=== PATIENT | male | born 1950 | race Caucasian/White ===

== ENCOUNTER 2019-02-19 13:07 | Emergency (ER) | payer OTHER ==
--- NOTE | 2019-02-19 15:14 | EDPHY ---
H & P Time Seen by Provider: 02/19/19 15:06 HPI/ROS: CHIEF COMPLAINT: Swelling in the right armpit HISTORY OF PRESENT ILLNESS: Patient is had a draining 2 cm red swollen abscess in his right armpit for the past 4 days but he noticed an additional redness and swelling in the right armpit for the last 2 days. He went to urgent care and was sent here. Is not associated with fever weakness or numbness in the hand. No recent injury or trauma. Symptoms moderate. REVIEW OF SYSTEMS: Eye: no change in vision ENT: no sore throat Cardiac: No chest pain Pulmonary: Not short of breath Abdomen: No gastrointestinal symptoms Musculoskeletal: HPI right armpit swelling Skin: HPI Neuro: no headache Constitutional: no fever : no urinary symptoms A comprehensive 10 point review of systems is otherwise negative aside from elements mentioned in the history of present illness. PAST MEDICAL HISTORY: Diabetes but no cardiac or lung disease. Social history: Last oral intake 9:00 a.m. General Appearance: Alert and conversant, cooperative. Eyes: No scleral icterus. ENT, Mouth: Normal mucous membranes. Respiratory: Normal respiratory effort, breath sounds equal, lungs are clear to auscultation. Cardiovascular: Regular rate and rhythm. Gastrointestinal: Abdomen is soft and non tender. Neurological: Alert, face symmetric, normal motor and sensory in extremities. Skin: Patient has a 2 cm red draining abscess in his right axilla and a 2nd one inferior and anterior the size of a fist extending into the pectoralis muscle on the lateral chest wall. It is tender and fluctuant. Surrounding erythema is present. Musculoskeletal: No peripheral edema. Normal right wrist radial pulse and normal motor and sensory in the hand. Psychiatric: Not agitated. Emergency Department course/MDM: Because of location and size surgical consultation is requested. 1515: [facility] for admissions nurse surgeon KELLIE consulted. 1555: Patient seen by Dr. Shook recommended nonsurgical treatment for 2nd swelling in his axilla on the right side. I discussed with the patient. Recommended admission for IV antibiotics, warned of delay in healing or worsening infection or right arm disability with outpatient treatment,, patient elects oral antibiotic states he understands risks and has capacity to make decisions regarding his care. Smoking Status: Never smoked Constitutional: Initial Vital Signs Temperature (C) 37.2 C 02/19/19 13:09 Heart Rate 101 H 02/19/19 13:09 Respiratory Rate 18 02/19/19 13:09 Blood Pressure 142/92 H 02/19/19 13:09 O2 Sat (%) 94 02/19/19 13:09 O2 Delivery Mode Room Air Allergies/Adverse Reactions: No Allergies [NKDA] Allergy (Verified 10/01/09 12:10) Home Medications: Medication Instructions Recorded Cephalexin [Keflex] 500 mg PO QID #40 cap 02/19/19 Sulfamethox/Tmp 800/160 mg 1 tab PO BID@1000,2200 #20 tab 02/19/19 [Bactrim Ds] Medical Decision Making - Data Points Laboratory Results: Laboratory Results 02/19/19 15:25 02/19/19 15:25 02/19/19 02/19/19 15:25 15:25 WBC 9.95 10^3/uL H 10^3/uL (3.80-9.50) RBC 5.00 10^6/uL 10^6/uL (4.40-6.38) Hgb 15.0 g/dL g/dL (13.7-17.5) Hct 44.0 % % (40.0-51.0) MCV 88.0 fL fL (81.5-99.8) MCH 30.0 pg pg (27.9-34.1) MCHC 34.1 g/dL g/dL (32.4-36.7) RDW 12.6 % % (11.5-15.2) Plt Count 206 10^3/uL 10^3/uL (150-400) MPV 10.0 fL fL (8.7-11.7) Neut % (Auto) 73.5 % % (39.3-74.2) Lymph % (Auto) 14.5 % L % (15.0-45.0) [place] % (Auto) 8.7 % % (4.5-13.0) Eos % (Auto) 2.4 % % (0.6-7.6) Baso % (Auto) 0.4 % % (0.3-1.7) Nucleat RBC Rel Count 0.0 % % (0.0-0.2) Absolute Neuts (auto) 7.31 10^3/uL H 10^3/uL (1.70-6.50) Absolute Lymphs (auto) 1.44 10^3/uL 10^3/uL (1.00-3.00) Absolute Monos (auto) 0.87 10^3/uL H 10^3/uL (0.30-0.80) Absolute Eos (auto) 0.24 10^3/uL 10^3/uL (0.03-0.40) Absolute Basos (auto) 0.04 10^3/uL 10^3/uL (0.02-0.10) Absolute Nucleated RBC 0.00 10^3/uL 10^3/uL (0-0.01) Immature Gran % 0.5 % % (0.0-1.1) Immature Gran # 0.05 10^3/uL 10^3/uL (0.00-0.10) Sodium 138 mEq/L mEq/L (135-145) Potassium 3.8 mEq/L mEq/L (3.5-5.2) Chloride 104 mEq/L mEq/L (97-110) Carbon Dioxide 23 mEq/l mEq/l (22-31) Anion Gap 11 mEq/L mEq/L (6-14) BUN 14 mg/dL mg/dL (7-23) Creatinine 0.8 mg/dL mg/dL (0.7-1.3) Estimated GFR > 60 Glucose 224 mg/dL H mg/dL (70-100) Calcium 9.0 mg/dL mg/dL (8.5-10.4) Departure - Departure Disposition: Home, Routine, Self-Care Clinical Impression: Abscess of axilla, right Condition: Good Instructions: Abscess (ED) Referrals: Iram Harley MD [Primary Care Provider] - As per Instructions Max Shook MD [Medical Doctor] - 1-2 days without fail Prescriptions: Cephalexin [Keflex] 500 mg PO QID #40 cap Sulfamethox/Tmp 800/160 mg [Bactrim Ds] 1 tab PO BID@1000,2200 #20 tab
[2019-02-19 15:37] LABS: PLATELET COUNT 206 10^3/uL (150-400)
[2019-02-19] MEDS ORDERED: SULFAMETHOX/TMP 800/160 MG 1 TAB ONE (16:01)
[2019-02-19] MEDS ORDERED: CEPHALEXIN 500 MG CAP PO ONE ×2 (16:01→16:02)
[2019-02-19] MEDS ORDERED: SULFAMETHOX/TMP 800/160 MG 1 TAB PO ONE (16:02)
[2019-02-19 16:10] VITALS: BP 128/75
--- NOTE | 2019-02-19 21:29 | GCON ---
[f rep st] CONSULTATION DATE OF CONSULTATION: 02/19/2019 CHIEF COMPLAINT: Right axillary pain. HISTORY OF PRESENTING ILLNESS: Patient is a 68-year-old male presenting to the ED with right axillary pain, swelling, and drainage. He has had a draining right axillary cyst for about 4 days, with mild pain. A few days ago, he also noticed a fist-sized area of swelling with moderate pain. He initially presented to an urgent care earlier this morning, where they prescribed an antibiotic. The patient is unsure of the type of antibiotic. He denies fever or chills. His range of motion is unaffected. He mentions he is currently getting over a viral cold. PAST MEDICAL HISTORY: No significant past medical history. MEDICATION: None. SOCIAL HISTORY: Never smoked. No alcohol. Lives at home. FAMILY HISTORY: Noncontributory. REVIEW OF SYSTEMS: A 10-point review of systems is reviewed and negative, except for otherwise stated above in HPI. PHYSICAL EXAMINATION: VITAL SIGNS: Blood pressure 128/75, heart rate 103, respiratory rate 16, O2 saturation 95 on room air, temperature 37.2. GENERAL: Alert and oriented x3. Patient appears comfortable, afebrile, in no acute distress. HEENT: Anicteric. CARDIOVASCULAR: Regular rate and rhythm. EXTREMITIES: Right axillary cyst measuring approximately 2 cm x 1 cm, actively draining with minimal purulence. There is a larger deep indurated cyst measuring approximately 7 cm x 7 cm, no central punctate or focal fluctuance. Mild tenderness. Mild overlying erythema. Left axilla unremarkable. Normal range of motion. SKIN: Normal except above. No rashes. NEUROLOGIC: Nonfocal. ASSESSMENT: Right axillary abscess and sebaceous cysts. PLAN: Patient likely has right axillary sebaceous cyst with concurrent early- onset large right axillary abscess. This is not amenable to incision and drainage right now. Would recommend outpatient management with antibiotics and warm compresses until abscess evolves more. Would consider I&D at that time. The patient is in agreement with this plan. He will follow up in the office in 1 week. We discussed other treatment options to include IV antibiotics inpatient versus drainage in the operating room. The patient was seen and evaluated with Dr. Shook. /[id number]/MODL MTDD
== END 2019-02-19 16:09 | disposition home or self-care (01) ==
DX: L02.411 Cutaneous abscess of right axilla (principal); E11.9 Type 2 diabetes mellitus without complications; Z79.4 Long term (current) use of insulin